=== PATIENT | female | born 1980 | race Caucasian/White ===

== ENCOUNTER 2017-05-22 15:41 | Emergency (ER) | payer OTHER ==
[~2017-05-22] VITALS: Ht 154.9 cm; Wt 88.9 kg
[~2017-05-22 15:41] MED LIST: NAPR550T PO; ORPH100T PO; TRAM50TA PO
[2017-05-22 16:20] VITALS: BP 158/92
[2017-05-22] MEDS ORDERED: HYDR-971 PO (16:29)
--- NOTE | 2017-05-22 16:29 | PHYS DOC ---
Past Medical History Past Medical History: No Pertinent History Past Surgical History: Alcohol Use: None Drug Use: None Adult General Chief Complaint Chief Complaint: EARACHE/EAR PAIN [facility] HPI Patient is a 36 year old female presents to the emergency department stating that she has having right upper and lower dental pain and discomfort. She states that she has some dental extractions done on and was placed on antibiotics as well as hydrocodone. Patient states that she has increased pain with some swelling hasn't had notified her dentist. They had wanted her to come in and be seen on Sunday however she states she did not have access to the vehicle or had many to be able to make it to the dentist. She is present here in the emergency department in which she states she drove herself here with a friend's car. She states that she has taken Tylenol and ibuprofen for pain and discomfort and she is out of the hydrocodone with no relief. She states that she has a few days of antibiotics left. She denies any fever, chills or any nausea vomiting. She denies using any type of straws or smoking. Review of Systems Review of Systems Constitutional: Denies fever or chills [] Eyes: Denies change in visual acuity, redness, or eye pain [] HENT: Denies nasal congestion or sore throat. Right upper and lower dental pain and discomfort. Respiratory: Denies cough or shortness of breath [] Cardiovascular: No additional information not addressed in HPI [] GI: Denies abdominal pain, nausea, vomiting, bloody stools or diarrhea [] : Denies dysuria or hematuria [] Musculoskeletal: Denies back pain or joint pain [] Integument: Denies rash or skin lesions [] Neurologic: Denies headache, focal weakness or sensory changes [] Endocrine: Denies polyuria or polydipsia [] Allergies Allergies Allergies Coded Allergies Type Severity Reaction Last Updated Verified ciprofloxacin Allergy Intermediate rash 06/10/16 No Physical Exam Physical Exam Constitutional: Well developed, well nourished, no acute distress, non-toxic appearance. [] HENT: Normocephalic, atraumatic, bilateral external ears normal, oropharynx moist, no oral exudates, nose normal. Bilateral tympanic membranes appear to be normal. Throat with no erythematous no drainage or discharge noted. Right upper and lower dental area with no redness no drainage or discharge noted. Eyes: PERRLA, EOMI, conjunctiva normal, no discharge. [] Neck: Normal range of motion, no tenderness, supple, no stridor. [] Cardiovascular:Heart rate regular rhythm, no murmur [] Lungs & Thorax: Bilateral breath sounds clear to auscultation []] Skin: Warm, dry, no erythema, no rash. [] Back: No tenderness Extremities: No tenderness, no cyanosis, no clubbing, ROM intact, no edema. [] Neurologic: Alert and oriented X 3, normal motor function, normal sensory function, no focal deficits noted. [] Psychologic: Affect normal, judgement normal, mood normal. [] EKG EKG [] Radiology/Procedures Radiology/Procedures [] Course & Med Decision Making Course & Med Decision Making Pertinent Labs and Imaging studies reviewed. (See chart for details) Patient was evaluated for dental pain with radiation of pain into the right ear. No redness or discoloration noted in the right ear. Dental area appears to be without any type of infection. Patient will be recommended to use ibuprofen 800 mg every 8 hours. Patient was also encouraged to continue the antibiotics as prescribed and follow up with the dentist. Also recommended patient to avoid using any type of straws to prevent a dry socket. Patient will be discharged home in stable condition signs symptoms to return back to emergency department as been provided. [] Dragon Disclaimer Dragon Disclaimer This electronic medical record was generated, in whole or in part, using a voice recognition dictation system. Departure Departure Impression: Primary Impression: Pain, dental Disposition: 01 HOME, SELF-CARE Condition: STABLE Referrals: UNKNOWN PCP NAME (PCP) Patient Instructions: Dental Pain, [id number] Additional Instructions: You may place ice packs on the upper part of your jaw area to help with swelling and pain. Ibuprofen 800 mg every 8 hours with food stop taking few develop an upset stomach. Continue the antibiotics as prescribed. Follow-up with your dentist within the next week. Return to emergency prior for signs and symptoms become worse. Scripts Hydrocodone/Apap 5-325 (NORCO 5-325 TABLET) 1 Each Tablet 1 TAB PO PRN Q6HRS Y for PAIN, #5 TAB 0 Refills Prov: RUDDY ALFREDO APRN 05/22/17 RUDDY ALFREDO APRN May 22, 2017 16:29
== END 2017-05-22 16:37 | disposition home or self-care (01) ==
LOC: ER 15:41
DX: K08.89 Other specified disorders of teeth and supporting structures (principal); Z98.818 Other dental procedure status; Z88.1 Allergy status to other antibiotic agents
CPT/HCPCS: 99283

== ENCOUNTER 2017-06-19 08:59 | Emergency (ER) | payer OTHER ==
[~2017-06-19] VITALS: Ht 154.9 cm; Wt 93.9 kg
[~2017-06-19 08:59] MED LIST changes: +HYDR-971 PO
[2017-06-19] MEDS ORDERED: IV NORMAL SALINE 1000ML BAG 1,000 ML IV SCH (09:20)
[2017-06-19 09:29] LABS: BILIRUBIN,URINE NEGATIVE (NEG); GLUCOSE,URINE NEGATIVE (NEG); NITRITE,URINE NEGATIVE (NEG); PROTEIN,URINE NEGATIVE (NEG-TRACE); UROBILINOGEN,URINE 0.2 mg/dL (0.2 mg/dL)
[2017-06-19 09:51] LABS: BASO # 0.1 x10^3/uL (0.0-0.2); BASO % 1 % (0-3); EOS % 3 % (0-3); HEMOGLOBIN 12.7 g/dL (12.0-15.5); LYMPH # 1.6 x10^3/uL (1.0-4.8); LYMPH % 26 % (24-48); MEAN CORPUSCULAR HEMOGLOBIN 28 pg (25-35); MEAN CORPUSCULAR HGB CONC 34 g/dL (31-37); MEAN CORPUSCULAR VOLUME 80 fL (79-100); MONO % 5 % (0-9); NEUT % 66 % (31-73); PLATELET COUNT 305 x10^3/uL (140-400); RED BLOOD COUNT 4.61 x10^6/uL (3.50-5.40); RED CELL DISTRIBUTION WIDTH 14.4 % (11.5-14.5); WHITE BLOOD COUNT 6.3 x10^3/uL (4.0-11.0)
[2017-06-19 09:57] LABS: BACTERIA,URINE MOD /HPF (0-FEW); RBC,URINE 0 /HPF (0-2); SQUAMOUS EPITHELIAL CELL,UR MANY /LPF
[2017-06-19 10:06] LABS: CALCIUM 8.6 mg/dL (8.5-10.1); CREATININE 0.9 mg/dL (0.6-1.0); GFR 71.7; POTASSIUM 3.9 mmol/L (3.5-5.1)
[2017-06-19 10:12] LABS: ALBUMIN 3.6 g/dL (3.4-5.0); ALBUMIN/GLOBULIN RATIO 0.9 (1.0-1.7); TOTAL BILIRUBIN 0.4 mg/dL (0.2-1.0); TOTAL PROTEIN 7.4 g/dL (6.4-8.2)
--- NOTE | 2017-06-19 10:40 | RAD ---
Exam performed: Limited ultrasound. History: Post cholecystectomy several years ago, complaining of right upper quadrant pain and nausea. Date of service: 06/19/17. Comparison: CT abdomen pelvis without contrast from 09/19/15. Technique: Real-time grayscale imaging of the right upper abdomen is performed and images obtained. Findings: This study is very limited due to morbid obesity and overlying bowel gas limiting evaluation. The liver demonstrates diffuse steatosis and measures 16.4 cm in length. There is no intra or extrahepatic biliary ductal dilatation. Previous cholecystectomy. Right kidney measures 9.2 x 4.6 x 4.2 cm. There is no hydronephrosis or nephrolithiasis. Suboptimal evaluation of the pancreas, IVC and aorta due to overlying bowel gas. Impression: Study very limited due to overlying bowel gas and patient's body habitus. Diffuse hepatic steatosis.
--- NOTE | 2017-06-19 14:26 | PHYS DOC ---
Past Medical History Past Medical History: No Pertinent History Past Surgical History: Cholecystectomy, Additional Past Surgical Histo: DENTAL (05/17/17) Alcohol Use: None Drug Use: None Adult General Chief Complaint Chief Complaint: ABDOMINAL PAIN HPI HPI 36-year-old female with a prior cholecystectomy complaining of right upper quadrant and epigastric abdominal pain today. Patient reports some mild nausea but no vomiting. No fevers chills sweats or shaking chills. Pain is not worse with movement. Normal bowel and bladder habits. Patient denies possibility of . Review of Systems Review of Systems Constitutional: Denies fever or chills [] Eyes: Denies change in visual acuity, redness, or eye pain [] HENT: Denies nasal congestion or sore throat [] Respiratory: Denies cough or shortness of breath [] Cardiovascular: No additional information not addressed in HPI [] GI: Denies abdominal pain, nausea, vomiting, bloody stools or diarrhea [] : Denies dysuria or hematuria [] Musculoskeletal: Denies back pain or joint pain [] Integument: Denies rash or skin lesions [] Neurologic: Denies headache, focal weakness or sensory changes [] Endocrine: Denies polyuria or polydipsia [] Current Medications Current Medications Current Medications Medications (Trade) Dose Ordered Sig/Shanna Start Time Stop Time Status Last Admin Dose Admin Sodium Chloride 1,000 ml @ 0 mls/hr Q0M 06/19/17 09:20 06/19/17 14:35 DC 06/19/17 09:25 0 MLS/HR Allergies Allergies Allergies Coded Allergies Type Severity Reaction Last Updated Verified ciprofloxacin Allergy Intermediate rash 06/10/16 No Physical Exam Physical Exam Constitutional: Well developed, well nourished, no acute distress, non-toxic appearance. [] HENT: Normocephalic, atraumatic, bilateral external ears normal, oropharynx moist, no oral exudates, nose normal. [] Eyes: PERRLA, EOMI, conjunctiva normal, no discharge. [] Neck: Normal range of motion, no tenderness, supple, no stridor. [] Cardiovascular:Heart rate regular rhythm, no murmur [] Lungs & Thorax: Bilateral breath sounds clear to auscultation [] Abdomen: Bowel sounds normal, soft, minimal right upper quadrant tenderness no guarding or rebound sounds no mass or megaly, no masses, no pulsatile masses. [ ] Skin: Warm, dry, no erythema, no rash. [] Back: No tenderness, no CVA tenderness. [] Extremities: No tenderness, no cyanosis, no clubbing, ROM intact, no edema. [] Neurologic: Alert and oriented X 3, normal motor function, normal sensory function, no focal deficits noted. [] Psychologic: Affect normal, judgement normal, mood normal. [] Current Patient Data Vital Signs Vital Signs Date Time Temp Pulse Resp B/P (MAP) Pulse Ox O2 Delivery O2 Flow Rate FiO2 06/19/17 14:28 68 20 141/64 (89) 100 Room Air 06/19/17 09:10 97.6 97.6 Lab Values Laboratory Tests Test 06/19/17 08:23 06/19/17 09:10 06/19/17 09:35 POC Urine HCG, Qualitative Hcg negative (Negative) Urine Collection Type Void Urine Color Yellow Urine Clarity Cloudy Urine pH 6.0 Urine Specific [place] 1.025 Urine Protein Negative mg/dL (NEG-TRACE) Urine Glucose (UA) Negative mg/dL (NEG) Urine Ketones (Stick) Negative mg/dL (NEG) Urine Blood Negative (NEG) Urine Nitrite Negative (NEG) Urine Bilirubin Negative (NEG) Urine Urobilinogen Dipstick 0.2 mg/dL (0.2 mg/dL) Urine Leukocyte Esterase Trace (NEG) Urine RBC 0 /HPF (0-2) Urine WBC 1-4 /HPF (0-4) Urine Squamous Epithelial Cells Many /LPF Urine Bacteria Mod /HPF (0-FEW) Urine Mucus Mod /LPF White Blood Count 6.3 x10^3/uL (4.0-11.0) Red Blood Count 4.61 x10^6/uL (3.50-5.40) Hemoglobin 12.7 g/dL (12.0-15.5) Hematocrit 37.0 % (36.0-47.0) Mean Corpuscular Volume 80 fL (79-100) Mean Corpuscular Hemoglobin 28 pg (25-35) Mean Corpuscular Hemoglobin Concent 34 g/dL (31-37) Red Cell Distribution Width 14.4 % (11.5-14.5) Platelet Count 305 x10^3/uL (140-400) Neutrophils (%) (Auto) 66 % (31-73) Lymphocytes (%) (Auto) 26 % (24-48) Monocytes (%) (Auto) 5 % (0-9) Eosinophils (%) (Auto) 3 % (0-3) Basophils (%) (Auto) 1 % (0-3) Neutrophils # (Auto) 4.1 x10^3uL (1.8-7.7) Lymphocytes # (Auto) 1.6 x10^3/uL (1.0-4.8) Monocytes # (Auto) 0.3 x10^3/uL (0.0-1.1) Eosinophils # (Auto) 0.2 x10^3/uL (0.0-0.7) Basophils # (Auto) 0.1 x10^3/uL (0.0-0.2) Sodium Level 139 mmol/L (136-145) Potassium Level 3.9 mmol/L (3.5-5.1) Chloride Level 105 mmol/L (98-107) Carbon Dioxide Level 26 mmol/L (21-32) Anion Gap 8 (6-14) Blood Urea Nitrogen 11 mg/dL (7-20) Creatinine 0.9 mg/dL (0.6-1.0) Estimated GFR (Cockcroft-Gault) 71.7 BUN/Creatinine Ratio 12 (6-20) Glucose Level 99 mg/dL (70-99) Calcium Level 8.6 mg/dL (8.5-10.1) Total Bilirubin 0.4 mg/dL (0.2-1.0) Aspartate Amino Transferase (AST) 13 U/L (15-37) L Alanine Aminotransferase (ALT) 26 U/L (14-59) Alkaline Phosphatase 97 U/L (46-116) Total Protein 7.4 g/dL (6.4-8.2) Albumin 3.6 g/dL (3.4-5.0) Albumin/Globulin Ratio 0.9 (1.0-1.7) L Lipase 92 U/L (73-393) Laboratory Tests 06/19/17 09:35 Laboratory Tests 06/19/17 09:35 EKG EKG [] Radiology/Procedures Radiology/Procedures Ultrasound unremarkable [] Course & Med Decision Making Course & Med Decision Making Pertinent Labs and Imaging studies reviewed. (See chart for details) Patient with right upper quadrant/epigastric pain with unremarkable exam. Labs unremarkable. Ultrasound done to rule out less likely possibility of biliary stone or pathology in the setting of prior cholecystectomy. Patient well- appearing on reevaluation. Vital signs stable. No further workup or treatment indicated she agrees with outpatient follow-up and strict return precautions given [] Dragon Disclaimer Dragon Disclaimer This electronic medical record was generated, in whole or in part, using a voice recognition dictation system. Departure Departure Impression: Primary Impression: Abdominal pain Disposition: HOME, SELF-CARE Condition: STABLE Referrals: NO PCP (PCP) Patient Instructions: Abdominal Pain Additional Instructions: It is not clear what the cause of your abdominal pain is today. Your labs were normal including urinalysis. Your not . Ultrasound showed no abnormality in her right upper quadrant. Rest and drink plenty of fluids. Take Motrin and Tylenol as needed for pain and follow-up with your doctor tomorrow. return immediately for new severe or worsening symptoms DIDIER TAYLOR MD Jun 19, 2017 14:25
[2017-06-19 14:28] VITALS: BP 141/64
== END 2017-06-19 14:35 | disposition home or self-care (01) ==
LOC: ER 08:59
DX: R10.11 Right upper quadrant pain (principal); R10.13 Epigastric pain; Z90.49 Acquired absence of other specified parts of digestive tract; Z88.1 Allergy status to other antibiotic agents
CPT/HCPCS: 36415; 76705; 80053; 81001; 81025; 83690; 85025; 99285; J7030

== ENCOUNTER 2017-09-11 12:14 | Emergency (ER) | payer OTHER ==
[~2017-09-11] VITALS: Ht 154.9 cm; Wt 98.4 kg
[~2017-09-11 12:14] MED LIST changes: +NAPR-682 PO; -NAPR550T PO
[2017-09-11 12:30] VITALS: BP 152/92
[2017-09-11] MEDS ORDERED: CYCL10TA2 PO (13:37)
--- NOTE | 2017-09-11 13:37 | PHYS DOC ---
Past Medical History Past Medical History: No Pertinent History Past Surgical History: Cholecystectomy, Additional Past Surgical Histo: DENTAL (05/17/17) Alcohol Use: None Drug Use: None Adult General Chief Complaint Chief Complaint: UPPER EXTREMITY PAIN HPI HPI Patient is a 36 year old female presents to the emergency room stating that she has having right upper back pain and discomfort. Patient states that she had woke up this morning went to stretch and heard a pop in her right upper back. She states that she has had increased pain since that time. Patient states she has not taken anything for the pain and discomfort. She denies any loss of strength or any numbness or tingling into the arms. Review of Systems Review of Systems Constitutional: Denies fever or chills [] Eyes: Denies change in visual acuity, redness, or eye pain [] HENT: Denies nasal congestion or sore throat [] Respiratory: Denies cough or shortness of breath [] Cardiovascular: No additional information not addressed in HPI [] GI: Denies abdominal pain, nausea, vomiting, bloody stools or diarrhea [] : Denies dysuria or hematuria [] Musculoskeletal: right upper back pain denies history of present illness joint pain [] Integument: Denies rash or skin lesions [] Neurologic: Denies headache, focal weakness or sensory changes [] Endocrine: Denies polyuria or polydipsia [] All other systems were reviewed and found to be within normal limits, except as documented in this note. Allergies Allergies Allergies Coded Allergies Type Severity Reaction Last Updated Verified ciprofloxacin Allergy Intermediate rash 06/10/16 No Physical Exam Physical Exam Constitutional: Well developed, well nourished, no acute distress, non-toxic appearance. [] HENT: Normocephalic, atraumatic, bilateral external ears normal, oropharynx moist, no oral exudates, nose normal. [] Eyes: PERRLA, EOMI, conjunctiva normal, no discharge. [] Neck: Normal range of motion, no tenderness, supple, no stridor. [] Cardiovascular:Heart rate regular rhythm, no murmur [] Lungs & Thorax: Bilateral breath sounds clear to auscultation [] Skin: Warm, dry, no erythema, no rash. [] Back: right upper back tenderness Extremities: No tenderness, no cyanosis, no clubbing, ROM intact, no edema. Patient with equal strength noted to the upper extremities. Good sensation noted bilaterally. Neurologic: Alert and oriented X 3, normal motor function, normal sensory function, no focal deficits noted. [] Psychologic: Affect normal, judgement normal, mood normal. [] Current Patient Data Vital Signs Vital Signs Date Time Temp Pulse Resp B/P (MAP) Pulse Ox O2 Delivery O2 Flow Rate FiO2 09/11/17 12:30 98.0 82 18 100 Room Air 98.0 EKG EKG [] Radiology/Procedures Radiology/Procedures [] Course & Med Decision Making Course & Med Decision Making Pertinent Labs and Imaging studies reviewed. (See chart for details) Patient will be provided with ibuprofen here in the emergency department as well as Flexeril as she has her right here. Patient will be discharged home in stable condition with recommendations for ice packs on 20 minutes off 20 minutes several times a day. Patient was instructed to eat when taking ibuprofen. She was also instructed that Flexeril will cause drowsiness do not typically be alert and oriented. I've spoken with the patient and/or caregivers. I've explained the patient's condition, diagnosis and treatment plan based on information available to me at this time. I've answered the patient's and/or caregivers questions and addressed any concerns. The patient and/or caregivers have a good understanding the patient's diagnosis, condition and treatment plan as can be expected at this point. Vital signs have been stabilized. The patient's condition is stable for discharge from the emergency department. The patient will pursue further outpatient evaluation with her primary care provider or other designated consulting physician as outlined in the discharge instructions. Patient and/or caregivers are agreeable to this plan of care and follow-up instructions have been explained in detail. The patient and/or caregivers have received these instructions in written format and expressed understanding of these discharge instructions. The patient and her caregivers are aware that if any significant change in condition or worsening of symptoms should prompt him to immediately return to this of the closest emergency department. If an emergent department is not readily available I would encourage him to call 911.[] Dragon Disclaimer Dragon Disclaimer This electronic medical record was generated, in whole or in part, using a voice recognition dictation system. Departure Departure Impression: Primary Impression: Upper back pain on right side Disposition: HOME, SELF-CARE Condition: STABLE Referrals: NO PCP (PCP) Patient Instructions: Back Pain, Adult, [id number] Additional Instructions: Activity as tolerated. Ibuprofen 800 mg every 8 hours. Make sure you eat when taking this medication for stomach upset. Flexeril will cause drowsiness do not take any be alert and oriented. Ice packs on 20 minutes off several times a day. Follow-up to primary care physician in the next 7-10 days and continue to have pain and discomfort. Return back to emergency department signs symptoms become worse. Scripts Cyclobenzaprine Hcl (CYCLOBENZAPRINE HCL) 10 Mg Tablet 1 TAB PO TID Y for MUSCLE SPASMS, #30 TAB Prov: RUDDY ALFREDO APRN 09/11/17 RUDDY ALFREDO APRN Sep 11, 2017 13:37
[2017-09-11] MEDS ORDERED: CYCLOBENZAPRINE 10 MG TABLET. PO ONE (13:45)
[2017-09-11] MEDS ORDERED: IBUPROFEN 800 MG TABLET. PO ONE (13:45)
== END 2017-09-11 13:48 | disposition home or self-care (01) ==
LOC: ER 12:14
DX: M54.6 Pain in thoracic spine (principal); Z88.1 Allergy status to other antibiotic agents
CPT/HCPCS: 99283

== ENCOUNTER 2017-09-24 10:39 | Emergency (ER) | payer OTHER ==
[~2017-09-24] VITALS: Ht 154.9 cm; Wt 98.4 kg
[~2017-09-24 10:39] MED LIST changes: +CYCL10TA2 PO
[2017-09-24] MEDS ORDERED: NAPROXEN 500 MG TABLET PO STA (11:12)
[2017-09-24] MEDS ORDERED: CYCLOBENZAPRINE 10 MG TABLET. PO ONE (11:15)
[2017-09-24] MEDS ORDERED: HYDROcodone/APAP 5/325MG 1 TAB TABLET PO ONE (11:15)
--- NOTE | 2017-09-24 12:16 | RAD ---
LUMBAR SPINE 2-3V Clinical Indication: back pain Comparison: None. Findings: There are 5 nonrib-bearing lumbar-type vertebral bodies. The normal lumbar lordosis is preserved. No listhesis. Vertebral body heights and disc spaces are maintained. No evidence of acute fracture. Cholecystectomy. IMPRESSION: No evidence of acute lumbar fracture or malalignment.
[2017-09-24 13:00] VITALS: BP 145/92
[2017-09-24] MEDS ORDERED: GABA-586 PO (13:06)
[2017-09-24] MEDS ORDERED: CYCL10TA2 PO (13:06)
[2017-09-24] MEDS ORDERED: NAPR500T4 PO (13:06)
[2017-09-24] MEDS ORDERED: METH4TAB2 PO (13:06)
--- NOTE | 2017-09-24 13:07 | PHYS DOC ---
Past Medical History Past Medical History: No Pertinent History Past Surgical History: Cholecystectomy, , Tubal ligation Additional Past Surgical Histo: DENTAL (05/17/17) Alcohol Use: None Drug Use: None Adult General Chief Complaint Chief Complaint: HIP PAIN HPI HPI Patient is a 36 year old female who presents with mild to moderate left low back pain radiating to the left lower extremity with some intermittent numbness and tingling to the left lower extremity that began yesterday after she fell. She states she did "splits". Patient denies any loss of consciousness. Denies any loss of bowel bladder function. She states her pain is worse on ambulation. Review of Systems Review of Systems Constitutional: Denies fever or chills [] Musculoskeletal: Left low back pain radiating to the left lower extremity Integument: Denies rash or skin lesions [] Neurologic: Denies headache, focal weakness or sensory changes [] All other systems were reviewed and found to be within normal limits, except as documented in this note. Current Medications Current Medications Current Medications Medications (Trade) Dose Ordered Sig/Shanna Start Time Stop Time Status Last Admin Dose Admin Acetaminophen/ Hydrocodone Bitart (Lortab 5/325) 1 tab 1X ONCE 09/24/17 11:15 09/24/17 11:16 DC 09/24/17 11:24 1 TAB Cyclobenzaprine HCl (Flexeril) 10 mg 1X ONCE 09/24/17 11:15 09/24/17 11:16 DC 09/24/17 11:24 10 MG Naproxen (Naprosyn) 500 mg 1X STAT 09/24/17 11:12 09/24/17 11:13 DC 09/24/17 11:24 500 MG Allergies Allergies Allergies Coded Allergies Type Severity Reaction Last Updated Verified ciprofloxacin Allergy Intermediate rash 06/10/16 No Physical Exam Physical Exam Constitutional: Well developed, well nourished, no acute distress, non-toxic appearance. [] Abdomen: Bowel sounds normal, soft, no tenderness, no masses, no pulsatile masses. [] Skin: Warm, dry, no erythema, no rash. [] Back: Diffuse paraspinal muscle tenderness to the left SI joint, no midline lumbar spine tenderness, no CVA tenderness. Positive left leg straight raises. Extremities: No tenderness, no cyanosis, no clubbing, ROM intact, no edema. [] Neurologic: Alert and oriented X 3, normal motor function, normal sensory function, no focal deficits noted. [] Psychologic: Affect normal, judgement normal, mood normal. [] Current Patient Data Vital Signs Vital Signs Date Time Temp Pulse Resp B/P (MAP) Pulse Ox O2 Delivery O2 Flow Rate FiO2 09/24/17 13:00 77 16 145/92 (109) 96 Room Air 09/24/17 10:56 98.4 98.4 Lab Values Laboratory Tests Test 09/24/17 11:05 POC Urine HCG, Qualitative Hcg negative (Negative) EKG EKG [] Radiology/Procedures Radiology/Procedures [] Course & Med Decision Making Course & Med Decision Making Pertinent Labs and Imaging studies reviewed. (See chart for details) Patient is in the ED with lumbar contusion as well as sciatic pain. Lumbar x- rays interpreted by radiologist are negative for any acute findings. Discharged with Medrol Dosepak, naproxen and Flexeril and gabapentin. Follow-up with PCP in 1-2 weeks. Dragon Disclaimer Dragon Disclaimer This electronic medical record was generated, in whole or in part, using a voice recognition dictation system. Departure Departure Impression: Primary Impression: Lumbar contusion Additional Impressions: Low back pain Sciatic pain Fall from standing Disposition: HOME, SELF-CARE Condition: STABLE Referrals: UNKNOWN PCP NAME (PCP) Follow-up with your doctor in 1-2 weeks Patient Instructions: Back Pain, Adult, Contusion, Sciatica with [facility] Additional Instructions: You were seen with lumbar contusion with a sciatic pain after falling. Your lumbar x-rays are negative for any acute findings. Take the prescribed medicines as ordered. Ice elevate the extremity affected. Follow-up with your doctor in one week. Scripts Methylprednisolone (MEDROL) 4 Mg Tab.ds.pk 1 PKG PO UD, #1 PKG Prov: EFRAÍN CARVAJAL APRN 09/24/17 Cyclobenzaprine Hcl (CYCLOBENZAPRINE HCL) 10 Mg Tablet 1 TAB PO TID, #30 TAB Prov: EFRAÍN CARVAJAL INSOLE REINFORCER 09/24/17 Naproxen (NAPROXEN) 500 Mg Tablet 1 TAB PO BID, #60 TAB 1 Refill Prov: EFRAÍN CARVAJAL APRN 09/24/17 Gabapentin (GABAPENTIN) 300 Mg Capsule 300 MG PO TID, #20 CAP Prov: EFRAÍN CARVAJAL INSOLE REINFORCER 09/24/17 Problem Qualifiers Primary Impression: Lumbar contusion Encounter type: initial encounter Qualified Codes: S30.0XXA - Contusion of lower back and pelvis, initial encounter Additional Impressions: Low back pain Chronicity: acute Back pain laterality: left Sciatica presence: with sciatica Sciatica laterality: sciatica of left side Qualified Codes: M54.42 - Lumbago with sciatica, left side Sciatic pain Laterality: left Qualified Codes: M54.32 - Sciatica, left side Fall from standing Encounter type: initial encounter Qualified Codes: W19.XXXA - Unspecified fall, initial encounter EFRAÍN CARVAJAL INSOLE REINFORCER Sep 24, 2017 13:07
== END 2017-09-24 13:20 | disposition home or self-care (01) ==
LOC: ER 10:39
DX: S30.0XXA Contusion of lower back and pelvis, initial encounter (principal); M54.42 Lumbago with sciatica, left side; Z90.49 Acquired absence of other specified parts of digestive tract; Z98.51 Tubal ligation status; Z98.890 Other specified postprocedural states; Z88.1 Allergy status to other antibiotic agents; W18.39XA Other fall on same level, initial encounter; Y93.89 Activity, other specified; Y99.8 Other external cause status; Y92.89 Other specified places as the place of occurrence of the external cause
CPT/HCPCS: 72100; 81025; 99284

== ENCOUNTER 2019-06-16 18:50 | Emergency (ER) | payer MEDICAID ==
[~2019-06-16] VITALS: Ht 154.9 cm; Wt 107.5 kg
[~2019-06-16 18:50] MED LIST changes: +DICL50TA4 PO; +GABA300C18 PO; +HYDR-3164 PO; -HYDR-971 PO; +METH4TAB2 PO; +NAPR-514 PO
[2019-06-16 19:05] VITALS: BP 121/75
[2019-06-16] MEDS ORDERED: DICL50TA2 PO (19:36)
[2019-06-16] MEDS ORDERED: NAPROXEN 500 MG TABLET PO STA (19:36)
[2019-06-16] MEDS ORDERED: METH4TAB2 PO (19:36)
[2019-06-16] MEDS ORDERED: CYCL10TA2 PO (19:36)
--- NOTE | 2019-06-16 19:36 | PHYS DOC ---
Past Medical History Past Medical History: No Pertinent History (EFRAÍN CARVAJAL APRN) Past Surgical History: Cholecystectomy, , Tubal ligation Additional Past Surgical Histo: DENTAL (05/17/17) (EFRAÍN CARVAJAL APRN) Alcohol Use: None Drug Use: None (EFRAÍN CARVAJAL APRN) Adult General Chief Complaint Chief Complaint: BACK PAIN - NO INJURY HPI HPI Patient is a 38 year old female with no significant medical history who presents to the ED today complaining of 8 out of 10 right flank pain radiating up and down her back that began this afternoon after doing yard work. Patient describes the pain as throbbing and worse on certain movements. She states the pain is intermittent. Denies anything specifically relieving the pain. She states she's tried taking Tylenol with no relief. (EFRAÍN CARVAJAL APRN) Review of Systems Review of Systems Constitutional: Denies fever or chills [] GI: Denies abdominal pain, nausea, vomiting, bloody stools or diarrhea [] : Denies dysuria or hematuria [] Musculoskeletal: Reports right flank pain Integument: Denies rash or skin lesions [] Neurologic: Denies headache, focal weakness or sensory changes [] All other systems were reviewed and found to be within normal limits, except as documented in this note. (EFRAÍN CARVAJAL APRN) Current Medications Current Medications Current Medications Medications (Trade) Dose Ordered Sig/Shanna Start Time Stop Time Status Last Admin Dose Admin Acetaminophen/ Hydrocodone Bitart (Lortab 5/325) 1 tab 1X ONCE 06/16/19 19:45 06/16/19 19:46 DC Diazepam (Valium) 5 mg 1X ONCE 06/16/19 19:45 06/16/19 19:46 DC Naproxen (Naprosyn) 500 mg 1X STAT 06/16/19 19:36 06/16/19 19:37 Cancel (CONNOR FRASER MD) Allergies Allergies Allergies Coded Allergies Type Severity Reaction Last Updated Verified ciprofloxacin Allergy Intermediate rash 06/10/16 No (CONNOR FRASER MD) Physical Exam Physical Exam Constitutional: Well developed, well nourished, no acute distress, non-toxic appearance. [] Abdomen: Bowel sounds normal, soft, no tenderness, no masses, no pulsatile masses. [] Skin: Warm, dry, no erythema, no rash. [] Back: Diffuse paraspinal muscle tenderness to the right flank region, no midline thoracic or lumbar spine tenderness, no CVA tenderness. [] Extremities: No tenderness, no cyanosis, no clubbing, ROM intact, no edema. [] Neurologic: Alert and oriented X 3, normal motor function, normal sensory function, no focal deficits noted. [] Psychologic: Affect normal, judgement normal, mood normal. [] (EFRAÍN CARVAJAL APRN) Current Patient Data Vital Signs Vital Signs Date Time Temp Pulse Resp B/P (MAP) Pulse Ox O2 Delivery O2 Flow Rate FiO2 06/16/19 19:05 98.2 84 15 121/75 (90) 98 Room Air 98.2 (CONNOR FRASER MD) Lab Values Laboratory Tests Test 06/16/19 19:06 POC Urine HCG, Qualitative Hcg negative (Negative) (CONNOR FRASER MD) EKG EKG [] (EFRAÍN CARVAJAL APRN) Radiology/Procedures Radiology/Procedures [] (EFRAÍN CARVAJAL APRN) Course & Med Decision Making Course & Med Decision Making Pertinent Labs and Imaging studies reviewed. (See chart for details) This is a 38-year-old female patient presenting to the ED today with right flank pain that began after doing yard work today. Patient does not meet [facility] imaging criteria. Will be discharged with cyclobenzaprine, Medrol Dosepak and diclofenac. Off note this patient was in the ED on 05/22/2019 complaining of back pain after lifting a couch. (EFRAÍN CARVAJAL APRN) Course & Med Decision Making Staff Physician Addendum: I was working in the ER during the course of this patient's visit. I was available for consultation as needed, but I was not directly involved in the care of this patient. (CONNOR FRASER MD) Dragon Disclaimer Dragon Disclaimer This electronic medical record was generated, in whole or in part, using a voice recognition dictation system. (EFRAÍN CARVAJAL APRN) Departure Departure Impression: Primary Impression: Acute thoracic myofascial strain Disposition: 01 HOME, SELF-CARE Condition: STABLE Referrals: UNKNOWN PCP NAME (PCP) Please follow-up with your own doctor in one week Patient Instructions: Thoracic Strain, [id number] Additional Instructions: You were evaluated in the emergency room for muscle strain. Please follow-up with your own doctor in the next 1 week. You can apply ice or heat to the affected area. Scripts Diclofenac Potassium (DICLOFENAC POTASSIUM) 50 Mg Tablet 1 TAB PO BID, #20 TAB 0 Refills Prov: EFRAÍN CARVAJAL APRN 06/16/19 Methylprednisolone (MEDROL) 4 Mg Tab.ds.pk 1 PKG PO UD, #1 PKG Prov: EFRAÍN CARVAJAL APRN 06/16/19 Cyclobenzaprine Hcl (CYCLOBENZAPRINE HCL) 10 Mg Tablet 1 TAB PO TID, #30 TAB Prov: EFRAÍN CARVAJAL APRN 06/16/19 Problem Qualifiers Primary Impression: Acute thoracic myofascial strain Encounter type: initial encounter Qualified Codes: S29.019A - Strain of muscle and tendon of unspecified wall of thorax, initial encounter EFRAÍN CARVAJAL APRN Jun 16, 2019 19:36 CONNOR FRASER MD Jun 16, 2019 22:14
[2019-06-16] MEDS ORDERED: diazePAM 5 MG TABLET PO ONE (19:45)
[2019-06-16] MEDS ORDERED: HYDROcodone/APAP 5/325MG 1 TAB TABLET PO ONE (19:45)
== END 2019-06-16 19:46 | disposition home or self-care (01) ==
LOC: ER 18:50
DX: S29.012A Strain of muscle and tendon of back wall of thorax, initial encounter (principal); X50.1XXA Overexertion from prolonged static or awkward postures, initial encounter; Y93.89 Activity, other specified; Y92.89 Other specified places as the place of occurrence of the external cause; Y99.8 Other external cause status
CPT/HCPCS: 81025; 99283

== ENCOUNTER 2019-09-19 08:45 | Emergency (ER) | payer MEDICAID ==
[~2019-09-19] VITALS: Ht 154.9 cm; Wt 104.3 kg
[~2019-09-19 08:45] MED LIST changes: +DICL50TA2 PO
[2019-09-19 09:30] VITALS: BP 145/70
[2019-09-19] MEDS ORDERED: DEXAMETHASONE 4 MG TABLET PO STA (09:41)
[2019-09-19] MEDS ORDERED: IPRATRPIUM/ALBUTEROL 0.5/2.5MG 3 ML NEBU. NEB ONE (09:45)
--- NOTE | 2019-09-19 09:58 | PHYS DOC ---
Past Medical History Past Medical History: No Pertinent History Past Surgical History: Cholecystectomy, , Tubal ligation Additional Past Surgical Histo: DENTAL (05/17/17) Alcohol Use: None Drug Use: None Adult General Chief Complaint Chief Complaint: Congestion HPI HPI Patient is a 38 year old female who presents with cough x Sunday. The patient also has runny nose, congestion, also states she had 101 fever yesterday. She also complains loss of appetite. She rates her pain 10 out of 10 in severity and states it hurts when she coughs. Has not been taking medication at home. Review of Systems Review of Systems Constitutional: Reports fever. Eyes: Denies change in visual acuity, redness, or eye pain [] HENT: Reports runny nose, and congestion. Respiratory: Reports cough Cardiovascular: No additional information not addressed in HPI [] GI: Reports loss of appetite. Denies abdominal pain, nausea, vomiting, bloody stools or diarrhea [] : Denies dysuria or hematuria [] Musculoskeletal: Denies back pain or joint pain [] Integument: Denies rash or skin lesions [] Neurologic: Denies headache, focal weakness or sensory changes [] Endocrine: Denies polyuria or polydipsia [] Complete systems were reviewed and found to be within normal limits, except as documented in this note. Current Medications Current Medications Current Medications Medications (Trade) Dose Ordered Sig/Shanna Start Time Stop Time Status Last Admin Dose Admin Albuterol/ Ipratropium (Duoneb) 3 ml 1X ONCE 09/19/19 09:45 09/19/19 09:46 DC 09/19/19 09:52 3 ML Dexamethasone (Decadron) 10 mg 1X STAT 09/19/19 09:41 09/19/19 09:44 DC 09/19/19 10:03 10 MG Allergies Allergies Allergies Coded Allergies Type Severity Reaction Last Updated Verified ciprofloxacin Allergy Intermediate rash 06/10/16 No Physical Exam Physical Exam Constitutional: Well developed, well nourished, no acute distress, non-toxic appearance. [] HENT: Normocephalic, atraumatic, bilateral external ears normal, oropharynx moist, no oral exudates, nose turbinates inflamed. Eyes: PERRLA, EOMI, conjunctiva normal, no discharge. [] Neck: Normal range of motion, no tenderness, supple, no stridor. [] Cardiovascular:Heart rate regular rhythm, no murmur [] Lungs & Thorax: Bilateral breath sounds clear to auscultation with exception of scattered rhonchi. Abdomen: Bowel sounds normal, soft, no tenderness, no masses, no pulsatile masses. [] Skin: Warm, dry, no erythema, no rash. [] Back: No tenderness, no CVA tenderness. [] Extremities: No tenderness, no cyanosis, no clubbing, ROM intact, no edema. [] Neurologic: Alert and oriented X 3, normal motor function, normal sensory function, no focal deficits noted. [] Psychologic: Affect normal, judgement normal, mood normal. [] Current Patient Data Vital Signs Vital Signs Date Time Temp Pulse Resp B/P (MAP) Pulse Ox O2 Delivery O2 Flow Rate FiO2 09/19/19 09:53 96 Room Air 09/19/19 09:30 98.1 86 20 145/70 (95 98.1 Lab Values Laboratory Tests Test 09/19/19 09:55 Influenza Type A Antigen Negative (NEGATIVE) Influenza Type B Antigen Negative (NEGATIVE) EKG EKG [] Radiology/Procedures Radiology/Procedures [][facility] [address] [place] [address] IMAGING REPORT Signed PATIENT: LINDA DIAZ JACCOUNT: [id number] : 1980 LOCATION: ER AGE: 38 SEX: F EXAM STATUS: REG ER ORD. PHYSICIAN: DIDIER WISE APRN REASON: cough, fever PROCEDURE: CHEST PA & LATERAL EXAM: CHEST 2 VIEWS. HISTORY: Cough, fever. COMPARISON: None. FINDINGS: Frontal and lateral views of the chest are obtained. There are no confluent infiltrates. There is no pneumothorax or pleural effusion. The heart is not enlarged. Cholecystectomy clips are noted. IMPRESSION: 1. No confluent infiltrates. Electronically signed by: Cheli Lowry MD (09/19/2019 10:03 AM) [facility] DICTATED and SIGNED BY: ROXIE LOWRY MD DATE: 09/19/19 1003 Course & Med Decision Making Course & Med Decision Making Pertinent Labs and Imaging studies reviewed. (See chart for details) Will give breathing treatment, chest x-ray, Decadron, flu test. Flu and Chest x-ray are unremarkable. Will d/c home to follow up with primary care provider. Elizabeth Disclaimer Elizabeth Disclaimer This electronic medical record was generated, in whole or in part, using a voice recognition dictation system. Departure Departure Impression: Primary Impression: Cough in adult patient Disposition: HOME, SELF-CARE Condition: STABLE Referrals: UNKNOWN PCP NAME (PCP) Patient Instructions: Cough, Adult, [id number] Additional Instructions: Thank you for visiting [facility]. We appreciate you trusting us with your care. If any additional problems come up don't hesitate to return to visit us. Please follow up with your primary care provider so they can plan tre tional care if needed and know about the problem that you had. If symptoms worsen come back to the Emergency Department. Any concerning symptoms that start such as chest pain, shortness of air, weakness or numbness on one side of the body, running high fevers or any other concerning symptoms return to the ER. Please fill your medications at any pharmacy and follow the prescription instructions. Scripts Benzonatate (TESSALON PERLE) 100 Mg Capsule 100 MG PO TID PRN for COUGH, #21 CAP Prov: DIDIER WISE APRN 09/19/19 DIDIER WISE APRN Sep 19, 2019 09:58
--- NOTE | 2019-09-19 10:06 | RAD ---
EXAM: CHEST 2 VIEWS. HISTORY: Cough, fever. COMPARISON: None. FINDINGS: Frontal and lateral views of the chest are obtained. There are no confluent infiltrates. There is no pneumothorax or pleural effusion. The heart is not enlarged. Cholecystectomy clips are noted. IMPRESSION: 1. No confluent infiltrates. Electronically signed by: Cheli Lowry MD (09/19/2019 10:03 AM) [facility]
[2019-09-19 10:23] LABS: INFLUENZA A PATIENT NEGATIVE (NEGATIVE); INFLUENZA B PATIENT NEGATIVE (NEGATIVE)
[2019-09-19] MEDS ORDERED: BENZ100C PO (10:27)
== END 2019-09-19 10:43 | disposition home or self-care (01) ==
LOC: ER 08:45
DX: R05 Cough (principal); R09.81 Nasal congestion; R09.89 Other specified symptoms and signs involving the circulatory and respiratory systems; R50.9 Fever, unspecified; Z88.1 Allergy status to other antibiotic agents
CPT/HCPCS: 71046; 87804; 94640; 99285; J7620; J8540